=== PATIENT | female | born 2005 ===

== ENCOUNTER → 2024-02-10 | Outpatient (CLI) | payer OTHER | LOC: LAB 12:09 → LAB SHORT 12:09 | DX: L02.91 Cutaneous abscess, unspecified (principal) | CPT/HCPCS: 87070; 87075; 87077; 87147; 87186; 87205 ==

== ENCOUNTER → 2024-07-10 | Outpatient (CLI) | payer OTHER ==
[2024-07-12 18:52] LABS: Bacterial Vaginosis PCR Negative (NEGATIVE); Candida glabrata-krusei, PCR NOT DETECTED (NOT DETECT)
[2024-07-12 19:22] LABS: Chlamydia Trachomatis Vaginal NOT DETECTED (NOT DETECT); Neisseria Gonorrhoea Vaginal NOT DETECTED (NOT DETECT)
[2024-07-12 21:25] LABS: Candida Group, PCR DETECTED (NOT DETECT)
== END | disposition home or self-care (01) ==
LOC: LAB SHORT 15:45 → LAB 15:45
PROVIDERS: Physician Assistant
DX: N92.6 Irregular menstruation, unspecified (principal); N76.0 Acute vaginitis; R30.0 Dysuria; R35.0 Frequency of micturition; R39.14 Feeling of incomplete bladder emptying
CPT/HCPCS: 81515; 87077; 87086; 87186; 87491; 87591